=== PATIENT | male | born 1945 | race African-American/Black ===

== ENCOUNTER 2017-09-11 14:17 | Emergency (ER) | payer MEDICARE, OTHER ==
[~2017-09-11] VITALS: Ht 175.3 cm; Wt 93.0 kg
[2017-09-11 15:55] VITALS: BP 148/82
== END 2017-09-11 18:09 | disposition left against medical advice (07) ==
LOC: ER 16:37
DX: I10 Essential (primary) hypertension (principal); Z53.21 Procedure and treatment not carried out due to patient leaving prior to being seen by health care provider

== ENCOUNTER 2017-12-28 18:32 | Inpatient (IN) | payer OTHER ==
[~2017-12-28] VITALS: Ht 180.3 cm; Wt 93.4 kg
[~2017-12-28 18:32] MED LIST: ETOMIDATE 2MG/ML 10ML VIAL IV ONE; NORMAL SALINE 0.9% 10 ML SYR ONE; SUCCINYLCHOLINE CHLORIDE 200MG/10ML VIAL IV ONE; VECURONIUM BROMIDE 10 MG/VIAL IV ONE
[2017-12-28] MEDS ORDERED: PANTOPRAZOLE SODIUM 40 MG/VIAL IV ONE (18:45)
[2017-12-28] MEDS ORDERED: PANTOPRAZOLE 80 MG in SODIUM CHLORIDE 0.9% 100 ML IV SCH (18:45)
[2017-12-28] MEDS ORDERED: OCTREOTIDE 1,000 MCG in SODIUM CHLORIDE 0.9% 98 ML IV STA ×2 (18:46→20:45)
[2017-12-28] MEDS ORDERED: ETOMIDATE 2MG/ML 10ML VIAL IV ONE (19:00)
[2017-12-28] MEDS ORDERED: OCTREOTIDE ACETATE 50 MCG/ML 1ML IV SCH (19:00)
[2017-12-28] MEDS ORDERED: SUCCINYLCHOLINE CHLORIDE 200MG/10ML VIAL IV ONE (19:00)
[2017-12-28] MEDS ORDERED: MIDAZOLAM HCL 50 MG in DEXTROSE 5% WATER 40 ML IV ONE (19:00)
[2017-12-28] MEDS ORDERED: VECURONIUM BROMIDE 10 MG/VIAL IV ONE (19:15)
[2017-12-28] MEDS ORDERED: PIPERACILLIN/TAZ 3.375G PREMIX 50 ML IV ONE (19:15)
[2017-12-28 19:16] LABS: BASOPHILS % 1.2 % (0.0-2.0); EOSINOPHILS % 1.8 % (0.0-5.0); HEMOGLOBIN. 10.6 g/dL (14.0-18.0); LYMPHOCYTES % 36.5 % (20.0-50.0); MEAN CORPUSCULAR HEMOGLOBIN 29.8 pg (28.0-32.0); MEAN CORPUSCULAR VOLUME 89.9 fL (80.0-94.0); MEAN PLATELET VOLUME 10.7 fl (7.4-10.4); MONOCYTES % 8.8 % (2.0-8.0); NEUTROPHILS % 51.7 % (40.0-76.0); PLATELET 230 x1000/uL (130-400); RED BLOOD CELL COUNT 3.56 mill/uL (4.7-6.1); RED CELL DISTRIBUTION WIDTH 15.6 % (11.6-14.6)
[2017-12-28 19:17] LABS: CHLORIDE 105 mEq/L (98-107)
[2017-12-28 19:19] LABS: INR 1.1; PARTIAL THROMBOPLASTIN TIME 27.8 sec (23.4-31.0)
[2017-12-28 19:21] LABS: AMMONIA 42 uMol/L (<32); ETHANOL BLOOD < 10 mg/dL
[2017-12-28] MEDS ORDERED: FUROSEMIDE 20MG/2ML VIAL IVP ONE (19:30)
[2017-12-28 19:36] LABS: CARBAMAZEPINE < 0.5 ug/mL (4-12); PHENOBARBITAL < 2.1 ug/mL (15.0-40.0)
[2017-12-28 19:44] LABS: VALPROIC ACID < 3.0 ug/mL (50-100)
[2017-12-28 20:06] LABS: BG BASE EXCESS -6.9 mmol/L (-2.0-2.0); BG CARBOXYHEMOGLOBIN 0.3 % (0.5-1.5); BG FRACTION INSPIRED OXYGEN 100; BG HCO3 ACT 18.3 mmol/L (22.0-26.0); BG METHEMOGLOBIN 0.1 % (0.0-1.5); BG OXYHEMOGLOBIN 98.6 % (94.0-97.0); BG PCO2 35.6 mmHg (35.0-45.0); BG PH 7.328 (7.350-7.450); BG PO2 238.6 mmHg (75.0-100.0); BG SAMPLE SITE RIGHT RADIAL; BG TIDAL VOLUME(mL) 500 mL; BG TOTAL HEMOGLOBIN 11.4 g/dL (12.0-18.0); BG VENT MODE VENT - A/C; BG VENT RATE 12 set
[2017-12-28] MEDS: PANTOPRAZOLE 80 MG in SODIUM CHLORIDE 0.9% 100 ML IV NR (20:22)
[2017-12-28] MEDS: HYDRALAZINE 20MG/ML VIAL IV PRN (20:53)
[2017-12-28 21:58] LABS: HEMATOCRIT 31.7 % (42.0-52.0); HEMOGLOBIN 10.5 g/dL (14.0-18.0); MEAN CORPUSCULAR HEMOGLOBIN 29.8 pg (28.0-32.0); MEAN CORPUSCULAR VOLUME 89.7 fL (80.0-94.0); PLATELET 242 x1000/uL (130-400); RED BLOOD CELL COUNT 3.54 mill/uL (4.7-6.1); RED CELL DISTRIBUTION WIDTH 15.3 % (11.6-14.6)
[2017-12-28 22:09] LABS: CREATINE KINASE MB FRACTION 3.2 ng/mL (0.5-3.6); T4 FREE 1.33 ng/dL (0.76-1.46)
[2017-12-28 23:15] VITALS: BP 105/67
[2017-12-28 23:30] VITALS: BP 111/69
[2017-12-28 23:46] VITALS: BP 140/75
[2017-12-29] VITALS (54 sets, daily range): BP systolic 99–154; BP diastolic 57–103
[2017-12-29] MEDS ORDERED: BLOOD SUGAR DIAGNOSTIC STRIP TEST SCH (01:00)
[2017-12-29] MEDS ORDERED: DEXTROSE 50% WATER 50ML SYRINGE IV PRN (01:15)
[2017-12-29 01:41] LABS: HEMATOCRIT 35.5 % (42.0-52.0); HEMOGLOBIN 11.5 g/dL (14.0-18.0)
[2017-12-29] MEDS: DEXT 5%/0.45% NACL 1000ML 1,000 ML IV SCH ×4 (01:49→20:53)
[2017-12-29] MEDS: PIPERACILLIN/TAZ 3.375G PREMIX 50 ML IV SCH ×3 (02:33→20:53)
[2017-12-29] MEDS ORDERED: VANCOMYCIN 1,750 MG in DEXT 5% WATER 500 ML IV SCH (03:00)
[2017-12-29] MEDS: PANTOPRAZOLE 80 MG in SODIUM CHLORIDE 0.9% 100 ML IV NR ×2 (06:00→18:11)
[2017-12-29 06:01] LABS: HEMATOCRIT. 27.9 % (42.0-52.0); HEMOGLOBIN. 9.3 g/dL (14.0-18.0); MEAN CORPUSCULAR HEMOGLOBIN 29.7 pg (28.0-32.0); MEAN CORPUSCULAR VOLUME 88.9 fL (80.0-94.0); MEAN PLATELET VOLUME 10.1 fl (7.4-10.4); PLATELET 172 x1000/uL (130-400); RED BLOOD CELL COUNT 3.14 mill/uL (4.7-6.1); RED CELL DISTRIBUTION WIDTH 15.5 % (11.6-14.6)
[2017-12-29] MEDS: BLOOD SUGAR DIAGNOSTIC STRIP TEST SCH ×4 (06:01→23:29)
[2017-12-29] MEDS: INSULIN LISPRO 100 UNITS/ML SUBCUT SCH ×4 (06:21→23:41)
[2017-12-29 06:24] LABS: CHLORIDE 105 mEq/L (98-107)
[2017-12-29 06:32] LABS: PHOSPHORUS 3.9 mg/dL (2.5-4.9)
[2017-12-29 06:37] LABS: CREATINE KINASE MB FRACTION 3.7 ng/mL (0.5-3.6)
[2017-12-29 06:38] LABS: CREATINE KINASE 88 IU/L (39-308)
[2017-12-29 07:24] LABS: BG BASE EXCESS -5.7 mmol/L (-2.0-2.0); BG CARBOXYHEMOGLOBIN 0.3 % (0.5-1.5); BG DEOXYHEMOGLOBIN 2.8 % (0.0-5.0); BG FRACTION INSPIRED OXYGEN 40; BG HCO3 ACT 18.8 mmol/L (22.0-26.0); BG METHEMOGLOBIN 0.3 % (0.0-1.5); BG OXYHEMOGLOBIN 96.6 % (94.0-97.0); BG PCO2 33.2 mmHg (35.0-45.0); BG PH 7.372 (7.350-7.450); BG PO2 107.2 mmHg (75.0-100.0); BG SAMPLE SITE RIGHT BRACHIAL; BG TIDAL VOLUME(mL) 450 mL; BG TOTAL HEMOGLOBIN 9.7 g/dL (12.0-18.0); BG VENT MODE VENT - A/C; BG VENT RATE 12 set
[2017-12-29] MEDS ORDERED: CHOL500010 PO (08:14)
[2017-12-29] MEDS ORDERED: AMLO10TA80 PO (08:14)
[2017-12-29] MEDS ORDERED: METH-360 PO (08:14)
[2017-12-29] MEDS ORDERED: ASPI-1159 PO (08:14)
[2017-12-29] MEDS ORDERED: METF10002 PO (08:14)
[2017-12-29] MEDS ORDERED: CLON0.2T PO (08:14)
[2017-12-29] MEDS ORDERED: INSULIN LISPRO 100 UNITS/ML SUBCUT SCH (08:20)
[2017-12-29] MEDS ORDERED: MIDAZOLAM HCL 50 MG in DEXTROSE 5% WATER 40 ML IV PRN (08:30)
[2017-12-29] MEDS ORDERED: MIDAZOLAM HCL 5 MG/5 ML VIAL ONE (12:28)
[2017-12-29] MEDS ORDERED: FENTANYL CITRATE/PF 50MCG/ML 2ML VIAL ONE (12:28)
[2017-12-29] MEDS ORDERED: SIMETHICONE 40 MG/0.6 ML 30ML ONE (12:29)
[2017-12-29 13:32] LABS: HEMATOCRIT 29.7 % (42.0-52.0); HEMOGLOBIN 9.6 g/dL (14.0-18.0)
[2017-12-29] MEDS ORDERED: ACETAMINOPHEN 325MG TABLET PO PRN (16:15)
[2017-12-29] MEDS ORDERED: LORAZEPAM 2MG/ML CPJ IV PRN (20:00)
[2017-12-29] MEDS ORDERED: MORPHINE SULFATE 4 MG/ML CPJ (NOT FOR IM USE) IV PRN (20:00)
[2017-12-29 21:10] LABS: HEMATOCRIT 24.7 % (42.0-52.0); HEMOGLOBIN 8.4 g/dL (14.0-18.0)
[2017-12-30] VITALS (44 sets, daily range): BP systolic 120–188; BP diastolic 77–114
[2017-12-30] MEDS ORDERED: VANCOMYCIN 1500MG in DEXTROSE 5% WATER 250ML IV SCH (03:00)
[2017-12-30 03:34] LABS: CLARITY URINE CLEAR (CLEAR); COLOR URINE YELLOW (YELLOW); KETONES URINE NEGATIVE (NEGATIVE); LEUKOCYTE ESTERASE URINE 1+ (NEGATIVE); NITRITE URINE NEGATIVE (NEGATIVE); OCCULT BLOOD URINE NEGATIVE (NEGATIVE); PROTEIN URINE NEGATIVE (NEGATIVE); SPECIFIC GRAVITY URINE 1.018 (1.005-1.030); UROBILINOGEN URINE 0.2 E.U./dL (0.2-1.0)
[2017-12-30] MEDS: DEXT 5%/0.45% NACL 1000ML 1,000 ML IV SCH ×2 (05:21→07:38)
[2017-12-30] MEDS: PIPERACILLIN/TAZ 3.375G PREMIX 50 ML IV SCH ×3 (05:32→23:33)
[2017-12-30] MEDS: INSULIN LISPRO 100 UNITS/ML SUBCUT SCH ×3 (05:33→17:54)
[2017-12-30] MEDS: BLOOD SUGAR DIAGNOSTIC STRIP TEST SCH ×3 (05:35→17:53)
[2017-12-30 07:07] LABS: CHLORIDE 106 mEq/L (98-107)
[2017-12-30] MEDS: HYDRALAZINE 20MG/ML VIAL IV PRN ×2 (07:27→16:00)
[2017-12-30] MEDS ORDERED: OCTREOTIDE 1,000 MCG in SODIUM CHLORIDE 0.9% 100 ML IV PRN (08:00)
[2017-12-30 08:39] LABS: BG BASE EXCESS -1.2 mmol/L (-2.0-2.0); BG CARBOXYHEMOGLOBIN 0.7 % (0.5-1.5); BG DEOXYHEMOGLOBIN 2.5 % (0.0-5.0); BG FRACTION INSPIRED OXYGEN 30; BG METHEMOGLOBIN 0.1 % (0.0-1.5); BG OXYGEN SATURATION 97.5 % (92.0-98.5); BG OXYHEMOGLOBIN 96.7 % (94.0-97.0); BG PCO2 30.8 mmHg (35.0-45.0); BG PH 7.472 (7.350-7.450); BG PO2 107.1 mmHg (75.0-100.0); BG SAMPLE SITE RIGHT RADIAL; BG TIDAL VOLUME(mL) 450 mL; BG TOTAL HEMOGLOBIN 8.1 g/dL (12.0-18.0); BG VENT MODE VENT - A/C; BG VENT RATE 12 set
[2017-12-30 08:41] LABS: HEMATOCRIT. 24.7 % (42.0-52.0); HEMOGLOBIN. 8.1 g/dL (14.0-18.0); MEAN CORPUSCULAR VOLUME 88.3 fL (80.0-94.0); MEAN PLATELET VOLUME 11.1 fl (7.4-10.4); PLATELET 131 x1000/uL (130-400); RED CELL DISTRIBUTION WIDTH 15.5 % (11.6-14.6)
[2017-12-30] MEDS: PANTOPRAZOLE 80 MG in SODIUM CHLORIDE 0.9% 100 ML IV SCH ×2 (09:09→19:52)
[2017-12-30] MEDS ORDERED: VANCOMYCIN 1500MG in DEXTROSE 5% WATER 250ML IV NR (10:00)
[2017-12-30 10:22] LABS: BG BASE EXCESS -2.6 mmol/L (-2.0-2.0); BG CARBOXYHEMOGLOBIN 0.5 % (0.5-1.5); BG DEOXYHEMOGLOBIN 4.7 % (0.0-5.0); BG FRACTION INSPIRED OXYGEN 30; BG HCO3 ACT 21.8 mmol/L (22.0-26.0); BG METHEMOGLOBIN 0.3 % (0.0-1.5); BG OXYHEMOGLOBIN 94.5 % (94.0-97.0); BG PCO2 35.7 mmHg (35.0-45.0); BG PH 7.403 (7.350-7.450); BG PO2 84.4 mmHg (75.0-100.0); BG PRESSURE SUPPORT 10; BG SAMPLE SITE RIGHT BRACHIAL; BG TOTAL HEMOGLOBIN 8.6 g/dL (12.0-18.0); BG VENT MODE VENT - CPAP
[2017-12-30 13:44] LABS: BG BASE EXCESS -2.4 mmol/L (-2.0-2.0); BG CARBOXYHEMOGLOBIN 0.3 % (0.5-1.5); BG DEOXYHEMOGLOBIN 2.4 % (0.0-5.0); BG FRACTION INSPIRED OXYGEN 40; BG HCO3 ACT 22.3 mmol/L (22.0-26.0); BG METHEMOGLOBIN 0.1 % (0.0-1.5); BG OXYGEN SATURATION 97.6 % (92.0-98.5); BG OXYHEMOGLOBIN 97.2 % (94.0-97.0); BG PCO2 37.7 mmHg (35.0-45.0); BG PH 7.389 (7.350-7.450); BG PO2 116.6 mmHg (75.0-100.0); BG SAMPLE SITE RIGHT RADIAL; BG TOTAL HEMOGLOBIN 8.9 g/dL (12.0-18.0); BG VENT MODE MASK - AEROSOL
[2017-12-30 15:00] LABS: PLATELET ESTIMATE NORMAL
[2017-12-30] MEDS: CLONIDINE 0.1MG TABLET PO PRN (15:21)
[2017-12-30 15:43] LABS: PLATELET ESTIMATE NORMAL
[2017-12-30 17:00] LABS: HEMATOCRIT 26.6 % (42.0-52.0); HEMOGLOBIN 9.1 g/dL (14.0-18.0); MEAN CORPUSCULAR HEMOGLOBIN 30.2 pg (28.0-32.0); MEAN CORPUSCULAR VOLUME 88.6 fL (80.0-94.0); PLATELET 172 x1000/uL (130-400); RED CELL DISTRIBUTION WIDTH 15.4 % (11.6-14.6)
[2017-12-30 17:36] LABS: HEPATITIS B SURFACE ANTIGEN NEGATIVE
[2017-12-30 18:04] LABS: HEPATITIS B CORE AB IGM NEGATIVE
[2017-12-30 18:06] LABS: HEPATITIS A AB IGM NEGATIVE (NEGATIVE)
[2017-12-30] MEDS: CLONIDINE 0.2MG TABLET PO SCH (18:21)
[2017-12-31] VITALS (40 sets, daily range): BP systolic 121–174; BP diastolic 51–100
[2017-12-31 00:01] LABS: HEMATOCRIT 26.2 % (42.0-52.0); HEMOGLOBIN 8.9 g/dL (14.0-18.0)
[2017-12-31] MEDS: INSULIN LISPRO 100 UNITS/ML SUBCUT SCH ×4 (01:34→17:59)
[2017-12-31] MEDS: BLOOD SUGAR DIAGNOSTIC STRIP TEST SCH ×4 (05:31→18:00)
[2017-12-31] MEDS: PANTOPRAZOLE 80 MG in SODIUM CHLORIDE 0.9% 100 ML IV SCH ×2 (05:35→15:39)
[2017-12-31] MEDS: PIPERACILLIN/TAZ 3.375G PREMIX 50 ML IV SCH ×3 (05:45→21:53)
[2017-12-31 07:14] LABS: HEMATOCRIT. 22.1 % (42.0-52.0); HEMOGLOBIN. 7.4 g/dL (14.0-18.0); MEAN CORPUSCULAR HEMOGLOBIN 30.1 pg (28.0-32.0); MEAN CORPUSCULAR VOLUME 90.2 fL (80.0-94.0); PLATELET 155 x1000/uL (130-400); RED BLOOD CELL COUNT 2.46 mill/uL (4.7-6.1); RED CELL DISTRIBUTION WIDTH 15.7 % (11.6-14.6)
[2017-12-31 08:18] LABS: CHLORIDE 110 mEq/L (98-107)
[2017-12-31] MEDS: CLONIDINE 0.2MG TABLET PO SCH ×2 (09:35→20:22)
[2017-12-31] MEDS ORDERED: VANCOMYCIN 1 G PREMIX 200 ML IV NR (10:00)
[2017-12-31 12:26] LABS: HEMATOCRIT 21.3 % (42.0-52.0)
[2017-12-31] MEDS: METHYLPHENIDATE HCL 5MG TABLET PO SCH ×2 (12:55→17:13)
[2017-12-31] MEDS ORDERED: METHYLPHENIDATE HCL 10 MG PO SCH (13:00)
[2017-12-31 16:35] LABS: PLATELET ESTIMATE NORMAL
[2017-12-31 22:07] LABS: HEMATOCRIT 26.3 % (42.0-52.0)
[2018-01-01] VITALS (31 sets, daily range): BP systolic 118–174; BP diastolic 52–98
[2018-01-01] MEDS: BLOOD SUGAR DIAGNOSTIC STRIP TEST SCH ×4 (00:10→18:23)
[2018-01-01 00:28] LABS: HEMATOCRIT 26.5 % (42.0-52.0); HEMOGLOBIN 9.2 g/dL (14.0-18.0)
[2018-01-01] MEDS: PANTOPRAZOLE 80 MG in SODIUM CHLORIDE 0.9% 100 ML IV SCH (01:39)
[2018-01-01] MEDS: PIPERACILLIN/TAZ 3.375G PREMIX 50 ML IV SCH ×3 (05:31→22:53)
[2018-01-01] MEDS: INSULIN LISPRO 100 UNITS/ML SUBCUT SCH ×4 (05:32→18:00)
[2018-01-01 05:46] LABS: HEMATOCRIT 27.2 % (42.0-52.0); HEMOGLOBIN 9.5 g/dL (14.0-18.0); MEAN CORPUSCULAR HEMOGLOBIN 30.9 pg (28.0-32.0); MEAN CORPUSCULAR VOLUME 88.2 fL (80.0-94.0); PLATELET 154 x1000/uL (130-400); RED BLOOD CELL COUNT 3.09 mill/uL (4.7-6.1); RED CELL DISTRIBUTION WIDTH 14.7 % (11.6-14.6)
[2018-01-01 05:58] LABS: AMMONIA 11 uMol/L (<32)
[2018-01-01] MEDS: METHYLPHENIDATE HCL 5MG TABLET PO SCH ×3 (09:18→21:13)
[2018-01-01] MEDS: CLONIDINE 0.2MG TABLET PO SCH ×2 (09:18→21:13)
[2018-01-01] MEDS ORDERED: SODIUM BICARBONATE 4% (2.4MEQ) 5ML VIAL IV ONE (09:54)
[2018-01-01] MEDS ORDERED: LIDOCAINE HCL/PF 1% 10 MG/ML 5ML VIAL ONE (09:54)
[2018-01-01] MEDS: PANTOPRAZOLE SODIUM 40 MG/VIAL IV SCH (16:59)
[2018-01-01] MEDS: VANCOMYCIN 1 G PREMIX 200 ML IV SCH (21:13)
[2018-01-02] VITALS (15 sets, daily range): BP systolic 133–173; BP diastolic 69–103
[2018-01-02] MEDS: BLOOD SUGAR DIAGNOSTIC STRIP TEST SCH ×4 (00:16→17:32)
[2018-01-02] MEDS: PIPERACILLIN/TAZ 3.375G PREMIX 50 ML IV SCH ×3 (05:46→23:13)
[2018-01-02] MEDS: INSULIN LISPRO 100 UNITS/ML SUBCUT SCH ×4 (05:47→17:41)
[2018-01-02 07:09] LABS: HEMATOCRIT. 26.3 % (42.0-52.0); HEMOGLOBIN. 8.8 g/dL (14.0-18.0); MEAN PLATELET VOLUME 10.5 fl (7.4-10.4); PLATELET 148 x1000/uL (130-400); RED BLOOD CELL COUNT 2.92 mill/uL (4.7-6.1); RED CELL DISTRIBUTION WIDTH 15.2 % (11.6-14.6)
[2018-01-02] MEDS: CLONIDINE 0.2MG TABLET PO SCH ×2 (08:43→21:29)
[2018-01-02] MEDS: PANTOPRAZOLE SODIUM 40 MG/VIAL IV SCH ×2 (08:43→17:32)
[2018-01-02] MEDS: METHYLPHENIDATE HCL 5MG TABLET PO SCH ×3 (08:43→17:31)
[2018-01-02 20:36] LABS: PLATELET ESTIMATE NORMAL
[2018-01-02] MEDS: VANCOMYCIN 1 G PREMIX 200 ML IV SCH (21:29)
[2018-01-02] MEDS: ATORVASTATIN CALCIUM 10MG TABLET PO SCH (21:29)
[2018-01-03] VITALS (15 sets, daily range): BP systolic 130–179; BP diastolic 74–107
[2018-01-03] MEDS: BLOOD SUGAR DIAGNOSTIC STRIP TEST SCH ×4 (00:39→17:06)
[2018-01-03] MEDS: PIPERACILLIN/TAZ 3.375G PREMIX 50 ML IV SCH (05:56)
[2018-01-03] MEDS: INSULIN LISPRO 100 UNITS/ML SUBCUT SCH ×4 (05:57→17:06)
[2018-01-03 06:07] LABS: HEMATOCRIT 24.9 % (42.0-52.0); HEMOGLOBIN 8.7 g/dL (14.0-18.0); MEAN CORPUSCULAR HEMOGLOBIN 30.9 pg (28.0-32.0); MEAN CORPUSCULAR VOLUME 88.6 fL (80.0-94.0); PLATELET 152 x1000/uL (130-400); RED BLOOD CELL COUNT 2.81 mill/uL (4.7-6.1); RED CELL DISTRIBUTION WIDTH 14.9 % (11.6-14.6)
[2018-01-03] MEDS: PANTOPRAZOLE SODIUM 40 MG/VIAL IV SCH ×2 (09:41→17:25)
[2018-01-03] MEDS: METHYLPHENIDATE HCL 5MG TABLET PO SCH ×3 (09:47→17:25)
[2018-01-03] MEDS: CLONIDINE 0.2MG TABLET PO SCH ×2 (09:47→21:11)
[2018-01-03] MEDS: AMLODIPINE 2.5MG TABLET PO SCH (10:40)
[2018-01-03 14:30] LABS: HEMATOCRIT 25.1 % (42.0-52.0); HEMOGLOBIN 8.6 g/dL (14.0-18.0)
[2018-01-03] MEDS: ATORVASTATIN CALCIUM 10MG TABLET PO SCH (21:11)
[2018-01-04] VITALS (11 sets, daily range): BP systolic 137–181; BP diastolic 54–123
[2018-01-04] MEDS: BLOOD SUGAR DIAGNOSTIC STRIP TEST SCH ×4 (00:31→17:29)
[2018-01-04] MEDS: INSULIN LISPRO 100 UNITS/ML SUBCUT SCH ×4 (06:00→17:30)
[2018-01-04 07:32] LABS: HEMATOCRIT 24.7 % (42.0-52.0); HEMOGLOBIN 8.4 g/dL (14.0-18.0); MEAN CORPUSCULAR HEMOGLOBIN 30.1 pg (28.0-32.0); MEAN CORPUSCULAR VOLUME 88.5 fL (80.0-94.0); PLATELET 181 x1000/uL (130-400); RED BLOOD CELL COUNT 2.79 mill/uL (4.7-6.1); RED CELL DISTRIBUTION WIDTH 14.8 % (11.6-14.6)
[2018-01-04] MEDS: CLONIDINE 0.2MG TABLET PO SCH ×2 (10:42→21:25)
[2018-01-04] MEDS: PANTOPRAZOLE SODIUM 40 MG/VIAL IV SCH ×2 (10:42→16:47)
[2018-01-04] MEDS: METHYLPHENIDATE HCL 5MG TABLET PO SCH ×3 (10:42→16:48)
[2018-01-04] MEDS: AMLODIPINE 2.5MG TABLET PO SCH (10:43)
[2018-01-04] MEDS ORDERED: KCL 20MEQ/100ML PREMIX 100 ML IV SCH (11:00)
[2018-01-04] MEDS: CLONIDINE 0.1MG TABLET PO PRN (21:20)
[2018-01-04] MEDS: ATORVASTATIN CALCIUM 10MG TABLET PO SCH (21:21)
[2018-01-05] VITALS (9 sets, daily range): BP systolic 122–155; BP diastolic 71–96
[2018-01-05] MEDS: BLOOD SUGAR DIAGNOSTIC STRIP TEST SCH ×3 (00:49→12:16)
[2018-01-05] MEDS: INSULIN LISPRO 100 UNITS/ML SUBCUT SCH ×3 (06:00→13:13)
[2018-01-05 06:28] LABS: HEMATOCRIT 23.8 % (42.0-52.0); HEMOGLOBIN 8.2 g/dL (14.0-18.0); MEAN CORPUSCULAR HEMOGLOBIN 30.6 pg (28.0-32.0); MEAN CORPUSCULAR VOLUME 88.4 fL (80.0-94.0); PLATELET 204 x1000/uL (130-400); RED BLOOD CELL COUNT 2.69 mill/uL (4.7-6.1); RED CELL DISTRIBUTION WIDTH 14.4 % (11.6-14.6)
[2018-01-05] MEDS: PANTOPRAZOLE SODIUM 40 MG/VIAL IV SCH (08:50)
[2018-01-05] MEDS: AMLODIPINE 2.5MG TABLET PO SCH (08:50)
[2018-01-05] MEDS: METHYLPHENIDATE HCL 5MG TABLET PO SCH ×2 (08:50→13:12)
[2018-01-05] MEDS: CLONIDINE 0.1MG TABLET PO PRN ×2 (08:50→08:51)
[2018-01-05] MEDS: CLONIDINE 0.2MG TABLET PO SCH (08:54)
== END 2018-01-05 15:36 | disposition short-term general hospital (02) | DRG 208 ==
LOC: ER 18:46 → EDBEDREQSVC 19:15 → CVICU 19:38 → EDBEDREQ 19:42 → EDBEDREQTM 19:42 → CANRESERV 21:35 → ENRESERV 21:35 → 3WST 01-01 17:30
PROVIDERS: ADMIT Internal Medicine; ATTEND Internal Medicine
PROC: 5A1945Z Respiratory Ventilation, 24-96 Consecutive Hours (ICD-10-PCS; 2017-12-28)
PROC: 4A00X4Z Measurement of Central Nervous Electrical Activity, External Approach (ICD-10-PCS; 2017-12-28)
PROC: 0BH17EZ Insertion of Endotracheal Airway into Trachea, Via Natural or Artificial Opening (ICD-10-PCS; 2017-12-28)
PROC: 30233N1 Transfusion of Nonautologous Red Blood Cells into Peripheral Vein, Percutaneous Approach (ICD-10-PCS; 2017-12-28)
PROC: 0DB68ZX Excision of Stomach, Via Natural or Artificial Opening Endoscopic, Diagnostic (ICD-10-PCS; principal; 2017-12-29 13:30)
PROC: 02HV33Z Insertion of Infusion Device into Superior Vena Cava, Percutaneous Approach (ICD-10-PCS; 2018-01-01)
PROC: B548ZZA Ultrasonography of Superior Vena Cava, Guidance (ICD-10-PCS; 2018-01-01)
PROC: 4A00X4Z Measurement of Central Nervous Electrical Activity, External Approach (ICD-10-PCS; 2018-01-04)
DX: J96.01 Acute respiratory failure with hypoxia (principal); J69.0 Pneumonitis due to inhalation of food and vomit; I63.9 Cerebral infarction, unspecified; N17.9 Acute kidney failure, unspecified; G92 Toxic encephalopathy; K22.6 Gastro-esophageal laceration-hemorrhage syndrome; K29.81 Duodenitis with bleeding; N18.3 Chronic kidney disease, stage 3 (moderate); E11.22 Type 2 diabetes mellitus with diabetic chronic kidney disease; E11.65 Type 2 diabetes mellitus with hyperglycemia; E87.5 Hyperkalemia; F03.90 Unspecified dementia, unspecified severity, without behavioral disturbance, psychotic disturbance, mood disturbance, and anxiety; G47.419 Narcolepsy without cataplexy; I12.9 Hypertensive chronic kidney disease with stage 1 through stage 4 chronic kidney disease, or unspecified chronic kidney disease; D64.9 Anemia, unspecified; Z85.46 Personal history of malignant neoplasm of prostate
CPT/HCPCS: 31500; 36415; 36430; 36569; 36600; 70450; 70551; 71045; 76770; 76937; 80048; 80053; 80061; 80156; 80165; 80184; 80185; 80202; 81003; 82140; 82375; 82550; 82553; 82805; 82962; 83036; 83605; 83690; 83735; 83880; 84100; 84145; 84439; 84443; 84484; 85007; 85014; 85018; 85025; 85027; 85379; 85610; 85730; 86705; 86709; 86803; 86850; 86900; 86920; 87040; 87070; 87086; 87340; 88305; 88312; 88313; 92523; 92610; 93005; 93306; 93880; 93970; 94002; 94003; 96365; 96366; 96368; 96375; 97163; 97167; 97530; 97535; 99291; A4216; A6261; C1725; C1769; C1893; C9113; G0482; J0330; J0360; J1815; J1940; J2250; J2354; J2543; J3010; J3370; J3480; J3490; J7040; J7050; J7060; P9016